=== PATIENT | male | born 1955 | race Asian ===

== ENCOUNTER 2023-07-03 21:07 | Emergency (ER) | payer BC ==
[2023-07-03 22:27] LABS: #Monocytes 0.3 10x3/uL (0.0-1.1); #Neutrophils 2.4 10x3/uL (1.5-8.4); %Basophils 0.5 % (0.0-2.0); %Eosinophils 0.5 % (0.0-6.0); %Lymphocytes 31.7 % (18.0-47.0); %Monocytes 7.6 % (0.0-10.0); %Neutrophils 59.7 % (40.0-75.0); Hematocrit 39.9 % (38.8-50.0); Hemoglobin 13.7 g/dL (13.5-17.5); Mean Corpuscular HGB CONC 34.3 g/dL (32.0-36.0); Mean Corpuscular Hemoglobin 30.7 pg (27.0-33.0); Mean Corpuscular Volume 89.5 fl (81.2-95.1); Mean Platelet Volume 9.2 fl (7.4-10.4); Platelet Count 162 10x3/uL (150-450); RBC Distribution Width 13.4 % (11.5-14.5); Red Blood Cell (RBC) Count 4.46 10x6/uL (4.32-5.72); White Blood Cell (WBC) Count 4.1 10x3/uL (3.5-10.5)
[2023-07-03 22:35] LABS: ALT (SGPT) 24 U/L (8-55); AST (SGOT) 21 U/L (5-34); Albumin 4.3 g/dL (3.4-4.8); Alkaline Phosphatase 50 U/L (40-110); Anion Gap 12 mmol/L (10-20); BUN (Urea Nitrogen) 16 mg/dL (8.4-25.7); Bilirubin, Total 1.1 mg/dL (0.2-1.2); Calc. Creatinine Clearance 0 mL/min (70-130); Calcium 9.1 mg/dL (7.8-10.44); Carbon Dioxide 27 mmol/L (23-31); Chloride 104 mmol/L (98-107); Estimated GFR 93; Globulin 2.8 g/dL (2.4-3.5); Glucose 126 mg/dL (80-115); Protein, Total 7.1 g/dL (5.8-8.1); Sodium 139 mmol/L (136-145)
[2023-07-03 22:41] LABS: Troponin I Less than 0.010 ng/mL (< 0.028)
== END 2023-07-03 23:15 | disposition home or self-care (01) ==
LOC: CSHERS 21:07
DX: I10 Essential (primary) hypertension (principal); I25.10 Atherosclerotic heart disease of native coronary artery without angina pectoris; Z79.82 Long term (current) use of aspirin
CPT/HCPCS: 36415; 71045; 80053; 84484; 85025; 93005

== ENCOUNTER 2024-06-02 23:57 | Emergency (ER) | payer BC ==
[2024-06-03] MEDS ORDERED: Acetaminophen 500 MG TAB ONE (02:41)
[2024-06-03] MEDS ORDERED: Ipratropium/Albuterol 3 ML NEB ONE (02:41)
== END 2024-06-03 04:00 | disposition home or self-care (01) ==
LOC: CSHERS 23:57
DX: J18.9 Pneumonia, unspecified organism (principal); I10 Essential (primary) hypertension
CPT/HCPCS: 71045; 87428; 94760; J7620